=== PATIENT | female | born 1935 ===

== ENCOUNTER 2024-07-03 08:29 | Emergency (ER) | payer MEDICARE, OTHER, SELFPAY ==
[2024-07-03 08:38] VITALS: BP 146/70; PULSE 80; O2SAT 99
[2024-07-03 08:54] VITALS: BP 131/66; PULSE 77; RESP 16; TEMP 36.6; O2SAT 97; BMI 21.9
[2024-07-03 10:11] LABS: MANUAL DIFF FLAG NO
[2024-07-03 10:14] LABS: Basophils Percent Auto 0.4 % (0-2); Eosinophils Absolute Auto 0.2 X10*3/uL (0.0-0.4); Eosinophils Percent Auto 3.9 % (0-4); Hematocrit 38.5 % (37.0-47.0); Hemoglobin 13.3 g/dl (12.0-16.0); Imm Gran Abs Auto 0.02 X10*3/uL (0.00-0.03); Imm Gran Pct Auto 0.4 % (0.0-0.4); Lymphocytes Absolute Auto 1.1 X10*3/uL (1.2-4.9); Lymphocytes Percent Auto 21.4 % (20-40); Mean Corpuscular HGB Conc 34.5 g/dl (31.0-35.0); Mean Corpuscular Hemoglobin 31.4 pg (27.0-33.0); Mean Corpuscular Volume 90.8 fL (80.0-98.0); Mean Platelet Volume 10.7 fL (9.4-12.3); Monocytes Absolute Auto 0.4 X10*3/uL (0.1-1.2); Monocytes Percent Auto 8.3 % (2-11); Neutrophils Absolute Auto 3.4 x10*3/uL (2.0-8.3); Neutrophils Percent Auto 65.6 % (45-73); Platelet Count 106 X10*3/uL (160-400); Red Blood Count 4.24 X10*6/uL (4.20-5.50); Red Cell Distribution Width 13.6 % (11.0-16.0); White Blood Count 5.2 X10*3/uL (4.8-10.8)
[2024-07-03] MEDS: valACYclovir HCL 1,000 MG TABLET 1000 MG PO (10:30)
[2024-07-03] MEDS: HYDROcodone Bit/Acetam 5/325 TABLET 1 TAB PO (10:30)
--- NOTE | 2024-07-03 10:30 | PC.NURSE ---
Pt presented to ED via EMS from home, reports she started having left sided back pain in middle of the night when she went to use bathroom. Pt reports hx of chronic back issues, denies falls or injury. Alert and oriented, breathing even and unlabored, skin warm and dry. Denies SOB, CP, N/V/D
[2024-07-03 10:32] LABS: Influenza A PCR NEGATIVE (Negative); Influenza B PCR NEGATIVE (Negative); Resp Syncy Virus RNA Qual PCR NEGATIVE (Negative); SARS COV2 PCR INHOUSE NEGATIVE (Negative)
[2024-07-03 10:35] LABS: Alanine Aminotransferase < 6 U/L (0-31); Albumin Level 3.5 g/dL (3.5-5.0); Anion Gap 13 (12-20); Aspartate Amino Transferase 24 U/L (5-31); Bilirubin Total 0.8 mg/dL (0.0-1.0); Blood Urea Nitrogen 18 mg/dL (9-16); Calcium 9.1 mg/dL (8.4-10.2); Carbon Dioxide 23 mmol/L (22-29); Chloride 111 mmol/L (96-108); Creatinine Clr Calc Pharmacy 24.1; Estimated Glomerular Filt Rate 40; Glucose Random 97 mg/dL (60-115); Potassium 3.6 mmol/L (3.3-5.1); Sodium 143 mmol/L (135-145); Total Protein 6.1 g/dL (6.5-8.0)
--- NOTE | 2024-07-03 11:01 | PC.NURSE ---
daughters # for ride [phone]
--- NOTE | 2024-07-03 11:13 | ED_ITS ---
HPI - Back Pain/Injury General Chief Complaint: Back Pain/Injury Stated Complaint: SUDDEN ONSET LL BACK PAIN @9PM,NO NEW INJURY Time Seen by Provider: 07/03/24 10:00 Source: patient, EMS, RN notes reviewed and old records reviewed Mode of arrival: EMS History of Present Illness ED Provider: Zara Vann PA-C HPI Narrative: 88-year-old female with unknown past medical history, reports thick blood currently on Eliquis and Plavix, presenting to the ED via EMS complaining of atraumatic left mid/side back pain since waking last night. States got up in the middle of the night to use the bathroom and was okay and then got up again this morning and was unable to get herself out of bed due to pain. Denies known injury, trauma, fall. Admits to chronic back pain in the past. Denies radiation of pain, abdominal pain, nausea, vomiting, dysuria/hematuria, weakness, incontinence Related Data Allergies Allergy/AdvReac Type Severity Reaction Status Date / Time No Known Allergies Allergy Verified 07/03/24 08:56 Review of Systems 2 Review of Systems: Yes all other systems are reviewed and are negative Constitutional: Constitutional: Reports as per HPI Neurologic: Denies Sensory deficit (Neuro) [facility] Past Medical History Attestation statement: The following information was validated with the patient. Source: old records reviewed Social History Social History Smoked in Last 30 Days: No Use of substances other than those prescribed or required for medical reasons: No Advance Directives: No Advance Directives Information Provided: Yes Physical Exam 2 Vital Signs: Vital Signs: Last Vital Signs Temp 97.4 F 07/03/24 14:09 Pulse 114 H 07/03/24 14:13 Resp 17 07/03/24 14:09 BP 94/46 L 07/03/24 14:13 Pulse Ox 98 07/03/24 14:09 O2 Del Method Room Air 07/03/24 14:09 BMI result Body Mass Index 21.9 Const: General: cooperative, healthy appearing and no acute distress O rientation/consciousness: patient oriented x3 Limitations: no limitations HEENT: Head: Yes normal to inspection and Yes atraumatic Ears: hearing grossly normal bilaterally General nose exam: Normal external nose present Face and sinus: Yes normal facial exam Eyes: General: appearance normal, both eyes and all related structures EOM: EOMs intact bilaterally Neck: Neck: Yes normal visual inspection and Yes no meningeal signs Resp: Effort & Inspection: normal respiratory effort and no respiratory distress Auscultation: clear to auscultation bilaterally Cardio: Rate: regular rate Heart sounds: S1 normal heart sound present and S2 normal heart sound present GI: Inspection: Yes normal to inspection Palpation (GI): Soft to palpation, nontender, no guarding and not rigid : General: Yes no CVA tenderness Back/Spine/Pelvis: Other: No midline cervical/thoracic/lumbar spinous tenderness/step-off or deformity. Back: no CVA tenderness Skin: Other: + erythematous clustered lesions noted t o left side in dermatomal fashion. No vesicles or crusting. No fluctuance/induration. Wounds: no wounds Neuro: Other: Strength intact throughout. No saddle anesthesia. Sensation intact to light touch. Neurovascular intact distally General: patient oriented x3, tone normal, moves all extremities, no meningeal signs and no focal motor deficits Cranial nerves: Yes CN's II-XII intact bilaterally Motor exam (neuro): 5/5 motor strength present throughout Sensory Exam: No Sensory deficit (Neuro) Extrem: General: Yes normal to inspection Course Course Course Narrative: -labs reassuring. Viral studies negative > will perform ambulation trial in the ED -1234--patient unable to ambulate independently in the ED due to pain and feeling dizzy. Will obtain orthostatics. Urine still pending. Will obtain PT/case management eval. -1352--patient was evaluated by Physical therapy and they recommended home with services. Case management will set up PT for home. Patient does not live alone. -orthostatic vital signs technically negative. Blood pressure did drop. Patient feels safe/comfortable for discharge home at this time, does not live alone. Results discussed with patient including worrisome signs and symptoms and strict return precautions, and when to return to the emergency department. They verbalized understanding and feel safe for discharge at this time. Medications Administered Discontinued Medications Generic Name Dose Route Start Last Admin Trade Name Freq PRN Reason Stop Dose Admin Hydrocodone Bitart/Acetaminophen 1 tab 07/03/24 10:07 07/03/24 10:30 Hydrocodone Bit/Acetam 5/325 Tablet PO 07/03/24 10:08 1 tab ONCE ONE Administration Valacyclovir HCl 1,000 mg 07/03/24 10:07 07/03/24 10:30 Valacyclovir Hcl 1,000 Mg Tablet PO 07/03/24 10:08 1,000 mg ONCE ONE Administration Medical Decision Making Medical Decision Making [facility] Narrative: 88-year-old female with unknown past medical history, reports thick blood currently on Eliquis and Plavix, presenting to the ED via EMS complaining of atraumatic left mid/side back pain since waking last night. On exam vital signs stable, NAD, nontoxic appearing, physical exam consistent with zoster. Lower suspicion for acute fracture, intrathoracic or intra-abdominal bleeding, renal stone/pyelo, cauda equina/cord compression Plan: Labs previously ordered in triage, UA ordered in triage, pain control, Valtrex, ambulation trial Please refer to course for remaining clinical decision making, interpretation of labs/imaging results, and discussions with consultants and/or family members. Differential Diagnosis Differential Diagnoses: The differential diagnosis associated with the presentation includes As above Admission/Observation Consideration of admission/observation: Escalation of care including admission/observation considered Lab Data [facility] Lab Attestation statement: I reviewed the patient's lab results. 07/03/24 10:06 07/03/24 10:06 Labs: Lab Results 07/03/24 07/03/24 07/03/24 Range/Units 09:48 10:06 12:40 WBC 5.2 (4.8-10.8) X10*3/uL RBC 4.24 (4.20-5.50) X10*6/uL Hgb 13.3 (12.0-16.0) g/dl Hct 38.5 (37.0-47.0) % MCV 90.8 (80.0-98.0) fL MCH 31.4 (27.0-33.0) pg MCHC 34.5 (31.0-35.0) g/dl RDW 13.6 (11.0-16.0) % Plt Count 106 L (160-400) X10*3/uL MPV 10.7 (9.4-12.3) fL Immature Gran % (Auto) 0.4 (0.0-0.4) % Neut % (Auto) 65.6 (45-73) % Lymph % (Auto) 21.4 (20-40) % Rankin % (Auto) 8.3 (2-11) % Eos % (Auto) 3.9 (0-4) % Baso % (Auto) 0.4 (0-2) % Lymph # (Auto) 1.1 L (1.2-4.9) X10*3/uL Rankin # (Auto) 0.4 (0.1-1.2) X10*3/uL Eos # (Auto) 0.2 (0.0-0.4) X10*3/uL Baso # (Auto) 0.0 (0.0-0.2) X10*3/uL Abs Immat Gran (auto) 0.02 (0.00-0.03) X10*3/uL Absolute Neuts (auto) 3.4 (2.0-8.3) x10*3/uL Absolute Nucleated RBC 0.000 (0.0-0.012) X10*3/uL Nucleated RBC % (auto) 0.0 (0.0-0.2) /100WBC Sodium 143 (135-145) mmol/L Potassium 3.6 (3.3-5.1) mmol/L Chloride 111 H (96-108) mmol/L Carbon Dioxide 23 (22-29) mmol/L Anion Gap 13 (12-20) BUN 18 H (9-16) mg/dL Creatinine 1.27 (0.5-1.4) mg/dL Estim Creat Clear Calc 24.1 Estimated GFR 40 Random Glucose 97 (60-115) mg/dL Calcium 9.1 (8.4-10.2) mg/dL Total Bilirubin 0.8 (0.0-1.0) mg/dL AST 24 (5-31) U/L ALT < 6 (0-31) U/L Alkaline Phosphatase 68 (39-117) U/L Total Creatine Kinase 28 (26-140) U/L Total Protein 6.1 L (6.5-8.0) g/dL Albumin 3.5 (3.5-5.0) g/dL Urine Color Yellow Urine Appearance Cloudy Urine pH 8.0 (5.0-9.0) Ur Specific [place] 1.010 (1.005-1.025) Urine Protein Trace (Neg-Trace) mg/dL Urine Glucose (UA) Negative (Negative) mg/dL Urine Ketones Negative (Negative) mg/dL Urine Blood Negative (Negative) Urine Nitrite Negative (Negative) Ur Leukocyte Esterase Small (1+) H (Negative) Urine RBC 0-2 (0-2) /HPF Urine WBC 6-10 (0-5) /HPF Ur Squamous Epith Cells 3-5 (0-2) /HPF Urine Bacteria 2+ (None Seen) Hyaline Casts 0-2 (0-2) /LPF Influenza Type A (PCR) NEGATIVE (Negative) Influenza Type B (PCR) NEGATIVE (Negative) RSV RNA Qual (PCR) NEGATIVE (Negative) SARS-CoV-2 RNA (RT-PCR) NEGATIVE (Negative) Radiology Impression Discussion of test interpretation with radiology: I have reviewed the radiologist's reading. External Record Review External record reviewed: Inpatient record, Office record, Outpatient record, Prior outpatient labs, Prior outpatient radiology, Primary care record and Outside ED record Tests considered The following testing was considered but not selected: As above Prescription Management I considered prescription management with: Other Chronic Conditions Patient?s care impacted by: Other Social Determinants Patient?s care significantly limited by Social Determinants of Health including: Problems related to primary support group and Other Social Determinant of Health Discharge Plan Discharge Clinical Impression: Herpes zoster Patient Disposition: Home, Self-Care Instructions: Shingles (ED) Additional Instructions: You have shingles Valtrex as an antiviral medication, please take as prescribed YOU ARE CONTAGIOUS. PLEASE AVOID TOUCHING RASH. DO NOT OTHER PEOPLE TOUCH THE RASH. [place] as an opiate pain medication, take only when pain is severe for the next 3 days. Be aware this has Tylenol mixed in, do not exceed 4 g of Tylenol in 1 day You were evaluated by physical therapy in past, case management will set up [facility] and physical therapy for home If her symptoms persist or worsen her pain is unbearable return to the ED Referrals: Nury Mathew [Outside] (Agency will call to arrange physical therapy visit. ) Physician,Brooks J [Primary Care Provider] - 3 days Print Language: Lithuanian
--- NOTE | 2024-07-03 12:21 | PC.NURSE ---
Ambulation trial done, pt unsteady on feet and needs alot of assistance with tech and walker. Provider aware, plan for PT/ CM
[2024-07-03 12:25] LABS: Alkaline Phosphatase 68 U/L (39-117)
[2024-07-03 12:46] LABS: Appearance Urine Cloudy; Color Urine Yellow; Glucose Urine UA Negative (Negative); Leukocyte Esterase Urine Small (1+) (Negative); Nitrite Urine Negative (Negative); UMIC TRIGGER UACC YES; Urine Blood Negative (Negative); Urine Ketones Negative (Negative); Urine Protein Trace mg/dL (Neg-Trace)
[2024-07-03 12:59] LABS: RBC Urine 0-2 /HPF (0-2)
[2024-07-03 13:00] LABS: Bacteria Urine 2+ (None Seen); Hyaline Casts Urine 0-2 /LPF (0-2); UACC Culture Trigger YES
--- NOTE | 2024-07-03 14:07 | MHC.CM.ED ---
Received case management consult from Zara BOWIE. Patient came to the ER due to back pain. Found to have Shingles. Physical therapy eval completed. Home with services is recommended. Patient's PCP is Tabitha Patel. Nury MCCLAIN arranged for physical therapy. Prema SOLIS will call patient's daughter to transport her home. Zara BOWIE aware of d/c plan. Continue to monitor for d/c needs.
[2024-07-03 14:09] VITALS: BP 113/52; PULSE 87; RESP 17; TEMP 36.3; O2SAT 98
[2024-07-03 14:11] VITALS: BP 113/52; PULSE 87
[2024-07-03 14:13] VITALS: BP 100/46; BP 94/46; PULSE 102; PULSE 114
[2024-07-03 15:27] VITALS: BP 94/46; PULSE 114; RESP 18; TEMP 36.6; O2SAT 97
== END 2024-07-03 15:30 | disposition home or self-care (01) ==
PROVIDERS: Physician Assistant; Emergency Provider Emergency Medicine; PCP Family Medicine
DX: B02.9 Zoster without complications (principal); R42 Dizziness and giddiness; Z03.818 Encounter for observation for suspected exposure to other biological agents ruled out; M54.50 Low back pain, unspecified; Z79.01 Long term (current) use of anticoagulants
CPT/HCPCS: 0241U; 80053; 81001; 82550; 85025; 87086; 97161; 99285